=== PATIENT | male | born 1950 | race African-American/Black ===

== ENCOUNTER 2016-09-09 08:13 | Inpatient (IN) | payer OTHER ==
[2016-09-09 10:27] VITALS: BMI 20.8
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
[2016-09-09] MEDS ORDERED: MAGNESIUM HYDROX 2400MG/30ML ORAL SUSPENSION 30 ML CUP PO PRN (12:13)
[2016-09-09] MEDS ORDERED: MENTHOL/PHENOL 1 EACH UD MM PRN (12:13)
[2016-09-09] MEDS ORDERED: NICOTINE POLACRILEX 2 MG GUM BC PRN (12:13)
[2016-09-09] MEDS ORDERED: P-EPHED 60MG/TRIPROLIDI 2.5MG TABLET PO PRN (12:13)
[2016-09-09] MEDS ORDERED: MAGNESIUM CITRATE 300 ML BOTTLE PO PRN (12:13)
[2016-09-09] MEDS ORDERED: LOPERAMIDE HCL 2 MG CAPSULE PO PRN (12:13)
[2016-09-09] MEDS ORDERED: IBUPROFEN 400 MG TABLET (FP) PO PRN (12:13)
[2016-09-09] MEDS ORDERED: chlordiazePOXIDE HCL 25 MG CAPSULE PO PRN (12:13)
[2016-09-09] MEDS ORDERED: MAG HYDROX/AL HYDROX/SIMETH 30 ML UNIT-DOSE CUP PO PRN (12:13)
[2016-09-09] MEDS ORDERED: ACETAMINOPHEN 325 MG TABLET (FP) PO PRN (12:13)
[2016-09-09] MEDS: NICOTINE 21 MG/24 HOURS TOPICAL PATCH TD SCH (13:44)
[2016-09-09] MEDS ORDERED: METHADONE HCL 10 MG TABLET (FOR DETOX USE ONLY) PO ONE ×2 (13:45→23:00)
[2016-09-09] MEDS ORDERED: chlordiazePOXIDE HCL 25 MG CAPSULE PO ONE (13:45)
[2016-09-09] MEDS: amLODIPine BESYLATE 10 MG TABLET (FP) PO SCH (13:45)
[2016-09-09] MEDS: COBICISTAT 150 MG PO SCH (15:26)
[2016-09-09] MEDS: LEVOFLOXACIN 500 MG TABLET (FP) PO SCH (15:26)
[2016-09-09] MEDS: PATIENT'S OWN MEDICATION (NON-FORMULARY) (Dolutegravir Sodium 50 MG) PO SCH (15:26)
[2016-09-09] MEDS: TENOFOVIR DISOPROXIL FUMARATE 300 MG TABLET PO SCH (15:27)
[2016-09-09] MEDS: AZITHROMYCIN 250 MG TABLET (FP) PO SCH (15:27)
[2016-09-09] MEDS: ATAZANAVIR SO4 300 MG CAPSULE PO SCH (15:27)
[2016-09-09] MEDS: chlordiazePOXIDE HCL 25 MG CAPSULE PO SCH ×2 (17:21→22:18)
[2016-09-09 18:07] LABS: URINE APPEARANCE CLEAR; URINE BILIRUBIN NEGATIVE (NEGATIVE); URINE COLOR YELLOW; URINE GLUCOSE (UA) NEGATIVE (NEGATIVE); URINE KETONE NEGATIVE (NEGATIVE); URINE LEUK ESTERASE NEGATIVE (NEGATIVE); URINE NITRITE NEGATIVE (NEGATIVE); URINE UROBILINOGEN NEGATIVE E.U./dl (0.2-1.0)
[2016-09-09 18:48] LABS: URINE BLOOD 1+ (NEGATIVE); URINE PROTEIN 3+ (NEGATIVE)
[2016-09-09 19:02] LABS: URINE HYALINE CAST 5 /lpf; URINE MUCUS RARE; URINE RBC 4 /hpf (0-3); URINE WBC 1 /hpf (3-5)
[2016-09-09] MEDS: ENALAPRIL MALEATE 2.5 MG TABLET (FP) PO SCH (22:18)
[2016-09-09] MEDS: THIAMINE HCL 100 MG TABLET (FP) PO SCH (22:18)
[2016-09-10] MEDS: LEVOFLOXACIN 500 MG TABLET (FP) PO SCH (05:59)
[2016-09-10] MEDS: chlordiazePOXIDE HCL 25 MG CAPSULE PO SCH ×4 (05:59→22:35)
[2016-09-10] MEDS: guaiFENesin/D-METHORPHAN HB 10 ML UNIT-DOSE CUPS PO PRN (06:05)
[2016-09-10] MEDS: ATAZANAVIR SO4 300 MG CAPSULE PO SCH (07:59)
[2016-09-10] MEDS: TENOFOVIR DISOPROXIL FUMARATE 300 MG TABLET PO SCH (07:59)
[2016-09-10 09:53] LABS: MCH 30.8 pg (25.7-33.7); MCHC 34.2 g/dl (32.0-35.9); MEAN CELL VOLUME 89.9 fl (80-96); MEAN PLT VOLUME 10.4 fl (7.5-11.1); PLATELET COUNT 86 K/MM3 (134-434); WHITE BLOOD COUNT 5.9 K/mm3 (4.0-10.0)
[2016-09-10] MEDS ORDERED: METHADONE HCL 10 MG TABLET (FOR DETOX USE ONLY) PO SCH (10:00)
[2016-09-10] MEDS ORDERED: PRENATAL VITAMINS W/ FOLIC ACID TABLET (FP) PO SCH (10:00)
[2016-09-10 10:10] LABS: ALBUMIN 2.8 g/dl (3.4-5.0); ANION GAP 8 (8-16); BILIRUBIN,TOTAL 0.7 mg/dL (0.2-1.0); CALCIUM 8.3 mg/dL (8.5-10.1); CO2 32 mmol/L (21-32); GLUCOSE,RANDOM 102 mg/dL (74-106); SGOT/AST 71 U/L (15-37); SGPT/ALT 69 U/L (12-78); TOT PROT 6.5 g/dl (6.4-8.2)
[2016-09-10 10:11] LABS: ALK PHOS 103 U/L (45-117); CREATININE 1.2 mg/dL (0.7-1.3)
[2016-09-10] MEDS: amLODIPine BESYLATE 10 MG TABLET (FP) PO SCH (10:27)
[2016-09-10] MEDS: ENALAPRIL MALEATE 2.5 MG TABLET (FP) PO SCH ×2 (10:27→22:35)
[2016-09-10] MEDS: AZITHROMYCIN 250 MG TABLET (FP) PO SCH (10:27)
--- NOTE | 2016-09-10 11:04 | EKG ---
Test Reason : Blood Pressure : / mmHG Vent. Rate : 075 BPM Atrial Rate : 075 BPM P-R Int : 164 ms QRS Dur : 092 ms QT Int : 380 ms P-R-T Axes : 059 030 062 degrees QTc Int : 424 ms NORMAL SINUS RHYTHM VOLTAGE CRITERIA FOR LEFT VENTRICULAR HYPERTROPHY ABNORMAL ECG NO PREVIOUS ECGS AVAILABLE Confirmed by LORENZO RIVERA MD ([id number]) on 09/10/2016 11:04:25 AM Referred By: Confirmed By:LORENZO RIVERA MD
[2016-09-10] MEDS: COBICISTAT 150 MG PO SCH (11:46)
[2016-09-10] MEDS: PATIENT'S OWN MEDICATION (NON-FORMULARY) (Dolutegravir Sodium 50 MG) PO SCH (11:46)
[2016-09-10] MEDS: NICOTINE 21 MG/24 HOURS TOPICAL PATCH TD SCH (11:46)
--- NOTE | 2016-09-10 12:08 | PN ---
[facility] CIWA - CIWA Score Nausea/Vomitin Muscle Tremors: 3 Anxiety: 2 Agitation: 1-Slight > Activity Paroxysmal Sweats: 3 Orientation: 2-Disoriented Date<2 days Tacttile Disturbances: 1-Very Mild Itch/Numbness Auditory Disturbances: 2-Mild Harshness/Frighten Visual Disturbances: 3-Moderate Sensitivity Headache: 0-None Present CIWA-Ar Total Score: 19 BHS COWS - Scale Resting Pulse: 1= [place] 81-100 Sweatin= Chills/Flushing Restless Observation: 1= Difficult to Sit Still Pupil Size: 0= Normal to Room Light Bone or Joint Aches: 2= Severe Diffuse Aches Runny Nose/ Eye Tearin= None GI Upset > 30mins: 3= Vomiting/Diarrhea Tremor Observation of Outstretched Hands: 2= Slight Tremor Visible Yawning Observation: 1= 1-2x During Session Anxiety or Irritability: 2=Irritable/Anxious Goose Flesh Skin: 3=Piloerection COWS Score: 16 S Progress Note (SOAP) Subjective: Tremors, Stomach Cramping, Vomiting, Interrupted sleep, Body Aches, Sweating, Productive Cough (pt. currently on Levaquin). Objective: PT. A & O X 2 (DISORIENTED ABOUT DAY / DATE). NO ACUTE DISTRESS. PT. DENIES CHEST PAIN. RHONCHI NOTED UPON AUSCULTATION OF LUNGS. 09/10/16 12:04 Vital Signs Temperature 97.0 F L 09/10/16 09:41 Pulse Rate 88 09/10/16 09:41 Respiratory Rate 20 09/10/16 09:41 Blood Pressure 159/98 09/10/16 09:41 O2 Sat by Pulse Oximetry (%) Laboratory Tests 09/09/16 09/10/16 09/10/16 13:38 06:00 06:00 WBC 5.9 RBC 4.27 Hgb 13.1 Hct 38.4 MCV 89.9 MCHC 34.2 RDW 15.0 D Plt Count 86 L MPV 10.4 Sodium 140 Potassium 3.5 Chloride 100 D Carbon Dioxide 32 D Anion Gap 8 BUN 17 D Creatinine 1.2 Creat Clearance w eGFR > 60 Random Glucose 102 Calcium 8.3 L Total Bilirubin 0.7 D AST 71 H D ALT 69 D Alkaline Phosphatase 103 Total Protein 6.5 Albumin 2.8 L Urine Color Yellow Urine Appearance Clear Urine pH 5.0 Ur Specific [place] 1.020 Urine Protein 3+ H Urine Glucose (UA) Negative Urine Ketones Negative Urine Blood 1+ H Urine Nitrite Negative Urine Bilirubin Negative Urine Urobilinogen Negative Ur Leukocyte Esterase Negative Urine RBC 4 Urine WBC 1 Hyaline Casts 5 Urine Mucus Rare RPR Titer 09/10/16 06:00 WBC RBC Hgb Hct MCV MCHC RDW Plt Count MPV Sodium Potassium Chloride Carbon Dioxide Anion Gap BUN Creatinine Creat Clearance w eGFR Random Glucose Calcium Total Bilirubin AST ALT Alkaline Phosphatase Total Protein Albumin Urine Color Urine Appearance Urine pH Ur Specific [place] Urine Protein Urine Glucose (UA) Urine Ketones Urine Blood Urine Nitrite Urine Bilirubin Urine Urobilinogen Ur Leukocyte Esterase Urine RBC Urine WBC Hyaline Casts Urine Mucus RPR Titer Nonreactive LABS NOTED. Assessment: 09/10/16 12:05 WITHDRAWAL SYMPTOMS. 09/10/16 15:02 Plan: CONTINUE DETOX. CONTINUE TO MONITOR BP. REPEAT UA TOMORROW FOR ADMISSION UA ABNORMALITIES.
[2016-09-10 22:22] VITALS: BP 122/80; PULSE 75; TEMP 98.6
[2016-09-10] MEDS: THIAMINE HCL 100 MG TABLET (FP) PO SCH (22:35)
[2016-09-10] MEDS: diphenhydrAMINE HCL 50 MG CAPSULE PO PRN (23:03)
[2016-09-11] MEDS: diphenhydrAMINE HCL 50 MG CAPSULE PO PRN (01:05)
[2016-09-11] MEDS: guaiFENesin/D-METHORPHAN HB 10 ML UNIT-DOSE CUPS PO PRN (01:05)
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
--- NOTE | 2016-09-11 07:28 | DS ---
[facility] Detox Discharge Summary Admission Date: 09/09/16 Discharge Date: 09/11/16 - History Present History: Alcohol Dependence, Opioid Dependence, Sedative Dependence Pertinent Past History: HIV HTN HEP C NEUROPATHY NICOTINE DEP - Physical Exam Results Vital Signs: Vital Signs Temperature 98.6 F 09/10/16 22:22 Pulse Rate 75 09/10/16 22:22 Respiratory Rate 18 09/11/16 03:30 Blood Pressure 122/80 09/10/16 22:22 O2 Sat by Pulse Oximetry (%) Pertinent Admission Physical Exam Findings: WITHDRAWAL SX'S - Treatment Hospital Course: Discharged Condition Good Patient has Accepted a Rehab Referral to: DECLINED - Medication Discharge Medications: Ambulatory Orders Amlodipine Besylate [Norvasc -] 10 mg PO DAILY 08/15/15 Cobicistat [Tybost] 150 mg PO DAILY 08/15/15 Dolutegravir Sodium [Tivicay] 50 mg PO DAILY 08/15/15 Enalapril Maleate [Vasotec -] 2.5 mg PO BID 08/15/15 Tenofovir Disoproxil Fumarate [Viread -] 300 mg PO DAILY 08/15/15 Atazanavir [Reyataz -] 300 mg PO DAILY@0800 capsule 08/20/15 Diphenhydramine [Benadryl -] 25 mg PO Q6H PRN 09/10/16 - Diagnosis (1) Alcohol dependence with withdrawal Status: Acute Qualifiers: Complication of substance-induced condition: uncomplicated Qualified Code(s): F10.230 - Alcohol dependence with withdrawal, uncomplicated (2) Hepatitis C Status: Acute Qualifiers: Viral hepatitis chronicity: chronic Hepatic coma status: without hepatic coma Qualified Code(s): B18.2 - Chronic viral hepatitis C (3) Hypertension Status: Acute Qualifiers: Hypertension type: essential hypertension Qualified Code(s): I10 - Essential (primary) hypertension (4) Opioid dependence with withdrawal Status: Acute (5) HIV (human immunodeficiency virus infection) Status: Chronic (6) Nicotine dependence Status: Acute - AMA Did Patient Leave Against Medical Advice: No (ADMINITRATIVE DC FOR THREATENING/ DISRUPTIVE BEHAVIOR)
[2016-09-11] MEDS ORDERED: METHADONE HCL 5 MG TABLET (FOR DETOX USE ONLY) PO SCH (10:00)
[2016-09-11] MEDS ORDERED: chlordiazePOXIDE 5 MG CAPSULE PO SCH (17:00)
[2016-09-12] MEDS ORDERED: chlordiazePOXIDE HCL 10 MG CAPSULE PO SCH (17:00)
[2016-09-13] MEDS ORDERED: METHADONE HCL 10 MG TABLET (FOR DETOX USE ONLY) PO SCH (10:00)
[2016-09-14] MEDS ORDERED: METHADONE HCL 5 MG TABLET (FOR DETOX USE ONLY) PO SCH (06:00)
== END 2016-09-11 05:50 | disposition home or self-care (01) | DRG 897 ==
LOC: YASAS 08:13 → Y3N 13:05
PROVIDERS: ADMIT Internal Medicine; ATTEND Internal Medicine
PROC: HZ2ZZZZ Detoxification Services for Substance Abuse Treatment (ICD-10-PCS; principal; 2016-09-09)
DX: F19.230 Other psychoactive substance dependence with withdrawal, uncomplicated (principal); F11.23 Opioid dependence with withdrawal; F10.230 Alcohol dependence with withdrawal, uncomplicated; F13.230 Sedative, hypnotic or anxiolytic dependence with withdrawal, uncomplicated; F17.210 Nicotine dependence, cigarettes, uncomplicated; F91.8 Other conduct disorders; Z21 Asymptomatic human immunodeficiency virus [HIV] infection status; B18.2 Chronic viral hepatitis C; I10 Essential (primary) hypertension
CPT/HCPCS: 36415; 71020-TC; 80053; 81003; 81015; 85027; 86593; 93005; 93010